=== PATIENT | female | born 1995 | race African-American/Black ===

== ENCOUNTER 2019-04-15 22:31 | Emergency (ER) | payer SELFPAY ==
[~2019-04-15] VITALS: Ht 175.3 cm; Wt 80.0 kg
[2019-04-16 05:30] VITALS: BP 105/70
[2019-04-16 05:57] LABS: BASOPHILS % 0.3 % (0.0-2.0); EOSINOPHILS % 1.5 % (0.0-5.0); HEMATOCRIT. 32.1 % (36.0-48.0); HEMOGLOBIN. 10.8 g/dL (12.0-16.0); LYMPHOCYTES % 21.7 % (20.0-50.0); MEAN PLATELET VOLUME 8.1 fl (7.4-10.4); NEUTROPHILS % 69.5 % (40.0-76.0); PLATELET 284 x1000/uL (130-400); RED BLOOD CELL COUNT 3.73 mill/uL (4.2-5.4); RED CELL DISTRIBUTION WIDTH 15.2 % (11.6-14.6)
[2019-04-16 06:04] LABS: CHLORIDE 109 mEq/L (98-107)
[2019-04-16 06:29] LABS: COLOR URINE YELLOW (YELLOW); KETONES URINE NEGATIVE (NEGATIVE); LEUKOCYTE ESTERASE URINE 1+ (NEGATIVE); NITRITE URINE NEGATIVE (NEGATIVE); OCCULT BLOOD URINE NEGATIVE (NEGATIVE); PH URINE 7.5 (4.5-8.0); PROTEIN URINE NEGATIVE (NEGATIVE); SPECIFIC GRAVITY URINE 1.007 (1.005-1.030); UROBILINOGEN URINE 0.2 E.U./dL (0.2-1.0)
[2019-04-16 06:30] LABS: B-HCG QUANTITATIVE 61082 mIU/mL (<3)
[2019-04-16 06:35] LABS: CLARITY URINE HAZY (CLEAR)
== END 2019-04-16 16:00 | disposition home or self-care (01) ==
LOC: ER 22:31
DX: O23.31 Infections of other parts of urinary tract in pregnancy, first trimester (principal); Z3A.10 10 weeks gestation of pregnancy; Z59.0 Homelessness
CPT/HCPCS: 36415; 76801; 80053; 81003; 81025; 84702; 85025; 86850; 86900; 87804; 93005; 99284